=== PATIENT | male | born 1960 | race Two or more races ===

== ENCOUNTER 2023-02-17 09:44 | Emergency (ER) | payer MEDICAID, OTHER ==
[~2023-02-17] VITALS: Ht 175.3 cm; Wt 108.9 kg
[~2023-02-17 09:44] MED LIST: PANT40SU MT
[2023-02-17 09:51] VITALS: O2SAT 97
[2023-02-17] MEDS ORDERED: MAGNESIUM/ALUMINUM HYDROXIDE/SIMETHICONE 30ML UDC PO ONE (10:15)
[2023-02-17] MEDS ORDERED: FAMOTIDINE 20MG TABLET PO ONE (10:15)
[2023-02-17 10:31] LABS: BASOPHILS % 1.1 % (0.0-2.0); EOSINOPHILS % 2.3 % (0.0-5.0); HEMATOCRIT. 31.5 % (42.0-52.0); HEMOGLOBIN. 10.2 g/dL (14.0-18.0); LYMPHOCYTES % 12.8 % (20.0-50.0); MEAN CORPUSCULAR HEMOGLOBIN 29.2 pg (28.0-32.0); MEAN CORPUSCULAR HGB CONC 32.5 g/dL (31.0-37.0); MONOCYTES % 8.6 % (2.0-8.0); NEUTROPHILS % 75.2 % (40.0-76.0); PLATELET 57 x1000/uL (130-400); RED CELL DISTRIBUTION WIDTH 15.5 % (11.6-14.6); WHITE BLOOD COUNT 5.1 x1000/uL (4.5-11.0)
[2023-02-17 11:56] LABS: ALANINE AMINOTRANSFERASE 29 IU/L (10-49); ALBUMIN 3.4 g/dL (3.2-4.8); ASPARTATE AMINOTRANSFERASE 109 IU/L (<34); BILIRUBIN TOTAL 1.7 mg/dL (0.1-1.0); CALCIUM 8.9 mg/dL (8.7-10.4); CARBON DIOXIDE 23 mEq/L (21-32); CHLORIDE 105 mEq/L (98-107); CREATININE 0.7 mg/dL (0.6-1.3); ETHANOL BLOOD 52 mg/dL (<10); GLUCOSE 119 mg/dL (70-105); POTASSIUM 3.6 mEq/L (3.5-5.1); PROTEIN TOTAL 7.7 g/dL (6.0-8.3); SODIUM 141 mEq/L (136-145); TROPONIN I HIGH SENSITIVITY 6 ng/L (3.0-53); UREA NITROGEN BLOOD 5 mg/dL (9-23)
[2023-02-17] MEDS ORDERED: FAMOTIDINE 20MG TABLET PO NR (12:30)
[2023-02-17] MEDS ORDERED: MAGNESIUM/ALUMINUM HYDROXIDE/SIMETHICONE 30ML UDC PO NR (12:30)
[2023-02-17] MEDS ORDERED: FAMO40TA70 MT (12:51)
[2023-02-17 14:00] VITALS: BP 135/80; PULSE 80; RESP 16; TEMP 98.6
== END 2023-02-17 14:07 | disposition home or self-care (01) ==
LOC: ER 09:44
DX: K29.20 Alcoholic gastritis without bleeding (principal); F10.10 Alcohol abuse, uncomplicated; D64.9 Anemia, unspecified; Y90.0 Blood alcohol level of less than 20 mg/100 ml
CPT/HCPCS: 80053; 80320; 83690; 85025; 84484; 36415; 71045; 76705; 93005; 99285; Z7610; G0480

== ENCOUNTER 2023-08-19 21:32 | Emergency (ER) | payer MEDICAID, OTHER ==
[~2023-08-19] VITALS: Ht 177.8 cm; Wt 114.0 kg
[~2023-08-19 21:32] MED LIST changes: +FAMO40TA70 MT
[2023-08-19 21:35] VITALS: TEMP 97.8; O2SAT 98
[2023-08-19 22:40] LABS: BASOPHILS % 1.2 % (0.0-2.0); EOSINOPHILS % 5.1 % (0.0-5.0); HEMATOCRIT. 30.4 % (42.0-52.0); HEMOGLOBIN. 9.9 g/dL (14.0-18.0); LYMPHOCYTES % 26.3 % (20.0-50.0); MEAN CORPUSCULAR HEMOGLOBIN 27.5 pg (28.0-32.0); MEAN CORPUSCULAR HGB CONC 32.4 g/dL (31.0-37.0); MEAN CORPUSCULAR VOLUME 84.8 fL (80.0-94.0); MEAN PLATELET VOLUME 7.2 fl (7.4-10.4); MONOCYTES % 10.3 % (2.0-8.0); NEUTROPHILS % 57.1 % (40.0-76.0); PLATELET 60 x1000/uL (130-400); RED BLOOD CELL COUNT 3.58 mill/uL (4.7-6.1); RED CELL DISTRIBUTION WIDTH 17.3 % (11.6-14.6); WHITE BLOOD COUNT 4.2 x1000/uL (4.5-11.0)
[2023-08-19 22:45] LABS: CHLORIDE 105 mEq/L (98-107); POTASSIUM 3.3 mEq/L (3.5-5.1); SODIUM 140 mEq/L (136-145)
[2023-08-19 22:46] LABS: CALCIUM 8.9 mg/dL (8.7-10.4); CARBON DIOXIDE 24 mEq/L (21-32)
[2023-08-19 22:51] LABS: CREATININE 0.8 mg/dL (0.6-1.3); ETHANOL BLOOD 300 mg/dL (<10); GLUCOSE 129 mg/dL (70-105); UREA NITROGEN BLOOD 10 mg/dL (9-23)
[2023-08-19 22:52] LABS: TROPONIN I HIGH SENSITIVITY 5 ng/L (3.0-53)
[2023-08-20] MEDS: MECLIZINE 25MG TABLET PO ONE (01:15)
[2023-08-20 06:24] VITALS: BP 165/76; PULSE 87; RESP 18
== END 2023-08-20 06:23 | disposition home or self-care (01) ==
LOC: ER 21:54
DX: R42 Dizziness and giddiness (principal); I10 Essential (primary) hypertension
CPT/HCPCS: 80048; 80320; 85025; 84484; 36415; 93005; 99284; 70450; J8597; G0480